=== PATIENT | male | born 1960 | race American Indian/Alaskan Native ===

== ENCOUNTER 2016-11-06 09:34 | Outpatient (CLI) | payer BC ==
--- NOTE | 2016-11-07 10:58 | Nuclear Medicine Report ---
NUCLEAR MEDICINE THYROID UPTAKE MULTIPLE HISTORY: Hyperthyroidism. COMPARISON: None. FINDINGS: The scintigraphic images of the thyroid gland are within normal limits. No hot or cold defect is identified. 4 hour uptake measures 34.1%. Normal range 4-18%. 24 hour uptake measures 36.8%. Normal range 18-36%. Impression: No focal scintigraphic abnormality is identified in the thyroid gland. The 4 and 24-hour uptake values are elevated as outlined above.
== END 2016-11-06 09:35 | disposition home or self-care (01) ==
LOC: NM 09:34
PROVIDERS: ATTEND Specialist
DX: E05.90 Thyrotoxicosis, unspecified without thyrotoxic crisis or storm (principal); N41.0 Acute prostatitis
CPT/HCPCS: 78012; A9516

== ENCOUNTER 2021-08-29 12:30 | Emergency (ER) | payer SELFPAY ==
--- NOTE | 2021-08-29 13:05 | Emergency Department Report ---
ED Male HPI - General Chief complaint: Urogenital-Male Stated complaint: problems urinating Time Seen by Provider: 08/29/21 12:42 Source: patient Mode of arrival: Ambulatory Limitations: No Limitations - History of Present Illness Initial comments: Patient presents with a several week history of intermittent urinary problems. He sometimes feels as though he needs to urinate and cannot. He sometimes has to strain. Sometimes, he urinates normally. There has not been hematuria. He has had no fevers or chills. There is no cough congestion posterior abdominal pain or back pain. He was brought in by family just because he is occasionally having these urinary symptoms and they did not know what to do about it. Family is concerned because he is also had some short-term memory loss for months. They think that he may have dementia. They report that he is "showing all the signs of it." They have not followed up with a regular physician. They have not been referred to neurology. I have had no medical evaluation for this long-term problem. There has been no head trauma. He has no chest pain. There is no other complaint at this time. - Related Data Home Medications Medication Instructions Recorded Confirmed Last Taken Aspirin/Acetaminophen/Caffeine 1 each PO PRN PRN 02/18/16 04/20/16 04/20/16 [[employer] Ex-Str Powder Packet] Pediatric Multivitamin No.101 1 each PO DAILY 02/18/16 04/20/16 04/20/16 [Gummy] Previous Rx's Medication Instructions Recorded Last Taken Type Clindamycin [Clindamycin CAP] 300 mg PO Q8H #14 cap 04/17/16 04/20/16 Rx Ibuprofen [Motrin] 800 mg PO Q8HR PRN #20 tablet 04/17/16 04/20/16 Rx Sulfamethoxazole/Trimethoprim 1 each PO BID #14 tablet 04/20/16 Unknown Rx [Bactrim DS TAB] Allergies Allergy/AdvReac Type Severity Reaction Status Date / Time Penicillins Allergy Severe Anaphylaxis Verified 11/01/15 14:06 ED Review of Systems ROS: Stated complaint: problems urinating Other details as noted in HPI Comment: All other systems reviewed and negative Constitutional: denies: fever Eyes: denies: vision change ENT: denies: throat pain Respiratory: denies: cough Cardiovascular: denies: chest pain Endocrine: denies: unexplained weight loss Gastrointestinal: denies: abdominal pain Genitourinary: as per HPI Musculoskeletal: denies: back pain Skin: denies: rash Neurological: as per HPI Hematological/Lymphatic: denies: easy bruising ED Past Medical Hx - Past Medical History Hx Hypertension: No Hx Liver Disease: No Hx Renal Disease: No Hx Seizures: No Hx Kidney Stones: No Hx Asthma: No Hx HIV: No - Surgical History Additional Surgical History: bilateral hands - Family History Family history: no significant - Social History Smoking Status: Former Smoker Substance Use Type: None - Medications Home Medications: Home Medications Medication Instructions Recorded Confirmed Last Taken Type Aspirin/Acetaminophen/Caffeine 1 each PO PRN PRN 02/18/16 04/20/16 04/20/16 History [[employer] Ex-Str Powder Packet] Pediatric Multivitamin No.101 1 each PO DAILY 02/18/16 04/20/16 04/20/16 History [Gummy] Clindamycin [Clindamycin CAP] 300 mg PO Q8H #14 cap 04/17/16 04/20/16 04/20/16 Rx Ibuprofen [Motrin] 800 mg PO Q8HR PRN #20 tablet 04/17/16 04/20/16 04/20/16 Rx Sulfamethoxazole/Trimethoprim 1 each PO BID #14 tablet 04/20/16 Unknown Rx [Bactrim DS TAB] ED Physical Exam - General Limitations: Physical Limitation (Per family, he has had intermittent speech problems for years. He has lost some fluidity of his speech.), Other (Pulse ox noted and normal) General appearance: alert, in no apparent distress - Head Head exam: Present: atraumatic, normocephalic, normal inspection - Eye Eye exam: Present: normal appearance, PERRL, EOMI. Absent: scleral icterus - ENT ENT exam: Present: normal orophraynx, normal external ear exam - Neck Neck exam: Present: normal inspection. Absent: meningismus - Respiratory Respiratory exam: Present: normal lung sounds bilaterally. Absent: respiratory distress - Cardiovascular Cardiovascular Exam: Present: regular rate, normal rhythm - GI/Abdominal GI/Abdominal exam: Present: soft. Absent: distended, tenderness - Extremities Exam Extremities exam: Present: normal capillary refill - Back Exam Back exam: Absent: CVA tenderness (R), CVA tenderness (L) - Neurological Exam Neurological exam: Present: alert, oriented X3, normal gait, other (Patient does have some intermittent loss of fluid speech. It is not persistent.). Absent: motor sensory deficit - Psychiatric Psychiatric exam: Present: normal affect, normal mood - Skin Skin exam: Present: warm, dry ED Course Vital Signs 08/29/21 12:41 Temperature 98.5 F Pulse Rate 73 Respiratory 20 Rate Blood Pressure 115/81 O2 Sat by Pulse 98 Oximetry - Reevaluation(s) Reevaluation #1: 08/29/21 13:03 UA and bladder scan ordered. Old records reviewed. We can provide neurologic referral for outpatient evaluation of his memory loss. We can also refer to primary care for ongoing management. Reevaluation #2: 08/29/21 13:44 UA and bladder scan are still pending. Care was signed out. ED Medical Decision Making - Medical Decision Making Patient presented secondary to urinary urgency that was intermittent. He certainly could have an enlarged prostate. He could have a urinary tract infection. Etiology for this is not known. Patient could also be in urinary retention. We are still awaiting UA and bladder scan. Family had reported some memory loss. At this time, that can be managed and worked up as an outpatient. Critical Care Time: No Critical care attestation.: If time is entered above; I have spent that time in minutes in the direct care of this critically ill patient, excluding procedure time. ED Disposition Clinical Impression: Difficulty in urination, Memory problem Disposition: 01 HOME / SELF CARE / HOMELESS Is pt being admited?: No Condition: Stable Instructions: Alzheimer Disease Caregiver Guide, [id number], Dementia, [id number] Additional Instructions: Drink plenty water. Return for problems. Follow-up with a family doctor and the neurologist as referred. Referrals: PRIMARY MD DOUG [Primary Care Provider] - 3-5 Days MIKAL MURCIA MD [Staff Physician] - 3-5 Days RENETTA VILLAGOMEZ MD [Staff Physician] - 3-5 Days
[2021-08-29 15:34] LABS: Bacteria,Urine 1+ /HPF (Negative); Bilirubin,Urine NEG (Negative); Blood,Urine SM (Negative); Color,Urine Yellow (Yellow); Mucus,Urine FEW /HPF; Protein,Urine <15 mg/dL mg/dL (Negative); Urobilinogen,Urine < 2.0 mg/dL (<2.0); WBC,Urine < 1.0 /HPF (0.0-6.0)
[2021-08-29 15:55] VITALS: BP 142/81
== END 2021-08-29 15:57 | disposition home or self-care (01) ==
LOC: ED 12:30
DX: R39.198 Other difficulties with micturition (principal); R41.3 Other amnesia; Z88.0 Allergy status to penicillin
CPT/HCPCS: 81001; 99283